=== PATIENT | female | born 1955 ===

== ENCOUNTER 2024-09-14 12:15 | Inpatient (IN) | payer OTHER ==
[~2024-09-14] VITALS: Ht 61 cm; Wt 68.0 kg
[2024-09-14] MEDS ORDERED: CYMBALTA60 MG PO (13:11)
[2024-09-14] MEDS ORDERED: COZAAR100 MG PO (13:11)
[2024-09-14] MEDS ORDERED: ULTRACET (13:12)
[2024-09-19] MEDS ORDERED: PROMETHAZINE HCL 50 MG/ML AMPUL IM PRN (11:00)
[2024-09-19] MEDS ORDERED: 0.9 % SODIUM CHLORIDE 1,000 ML IV SCH (11:00)
[2024-09-19] MEDS ORDERED: ENALAPRILAT DIHYDRATE 1.25 MG/ML VIAL IV PRN (11:00)
[2024-09-19] MEDS ORDERED: AMOX-CLAV 875-1 EACH PO (11:04)
[2024-09-19] MEDS ORDERED: COLACE100 MG PO (11:04)
[2024-09-19] MEDS ORDERED: PERCOCET 5-3251 EACH PO (11:04)
[2024-09-19] MEDS ORDERED: MEDROLPACK PO (11:04)
[2024-09-19] MEDS ORDERED: GABAPENTIN100 M2 PO (11:05)
[2024-09-19] MEDS ORDERED: NEURONTIN800 MG PO (11:05)
[2024-09-19] MEDS ORDERED: ACETAMINOPHEN 500 MG GEL..CAP PO SCH ×2 (13:00→20:00)
[2024-09-19] MEDS ORDERED: DOCUSATE SODIUM 100MG CAP PO SCH (13:00)
[2024-09-19] MEDS ORDERED: MORPHINE SULFATE 4 MG/ML CARTRIDGE IV SCH (13:00)
[2024-09-19] MEDS ORDERED: VANCOMYCIN HCL 1,000 MG VIAL IR ONE (15:15)
[2024-09-19] MEDS ORDERED: IOVERSOL 320 MG/ML - 50 ML VIAL IV ONE (15:15)
[2024-09-19] MEDS ORDERED: METHYLPREDNISOLONE SOD SUCC 125 MG VIAL IV ONE ×2 (15:15)
[2024-09-19] MEDS ORDERED: VANCOMYCIN HCL 1,000 MG VIAL IV ONE (15:15)
[2024-09-19] MEDS ORDERED: CEFAZOLIN SODIUM 1,000 MG VIAL IV ONE (15:15)
[2024-09-19] MEDS ORDERED: CEFAZOLIN SODIUM 1,000 MG in 0.9 % SODIUM CHLORIDE 50 ML IV SCH (17:00)
[2024-09-19] MEDS ORDERED: METHYLPREDNISOLONE SOD SUCC 125 MG VIAL IV SCH (17:00)
[2024-09-19] MEDS ORDERED: FAMOtidine 20 MG TABLET PO SCH (17:00)
[2024-09-19] MEDS ORDERED: VANCOMYCIN HCL 1,000 MG VIAL IV SCH (17:00)
[2024-09-19] MEDS ORDERED: MORPHINE SULFATE 4 MG/ML VIAL IV ONE ×3 (17:45→20:20)
[2024-09-19] MEDS ORDERED: GABAPENTIN 800 MG TABLET PO SCH (21:00)
[2024-09-19 22:27] VITALS: BP 149/77; O2SAT 100
[2024-09-19 23:30] VITALS: BP 132/77; O2SAT 99
[2024-09-20] MEDS ORDERED: SODIUM CHLORIDE 0.45 % 1,000 ML IV SCH
[2024-09-20 04:00] VITALS: BP 148/87; O2SAT 97
[2024-09-20 05:49] LABS: CALCIUM 9.1 mg/dL (8.5-10.1); CREATININE SERUM 0.68 mg/dL (0.55-1.02); GFR 85.79; POTASSIUM 5.66 mEq/L (3.5-5.1)
[2024-09-20] MEDS ORDERED: OxyCODONE HCL 5 MG TABLET (ROXICODONE) PO PRN (06:01)
[2024-09-20 06:32] LABS: HEMATOCRIT 37.2 % (36.0-45.00); HEMOGLOBIN 12.4 g/dL (12.0-15.00); MEAN CORPUSCULAR HEMOGLOBIN 31.6 pg (27.00-32.0); MEAN CORPUSCULAR HGB CONC 33.2 g/dl (32.0-36.0); PLATELET COUNT 169 K/uL (150-450); RED BLOOD COUNT 3.92 M/uL (4.00-6.00); RED CELL DISTRIBUTION WIDTH 12.7 % (11.5-14.5)
[2024-09-20] MEDS ORDERED: INSULIN LISPRO 1,000 UNIT/10 ML UNITS SUBCUTANEO PRN (07:15)
[2024-09-20] MEDS ORDERED: DEXTROSE 50 % IN WATER 0.5 G/ML DISP.SYRIN IV PRN (07:15)
[2024-09-20] MEDS ORDERED: TAMSULOSIN HCL 0.4 MG CAP PO SCH (09:00)
[2024-09-20] MEDS ORDERED: LOSARTAN POTASSIUM 100 MG TABLET PO SCH (09:00)
[2024-09-20] MEDS ORDERED: Duloxetine HCl 60 MG CAPSULE.DR PO SCH (09:00)
[2024-09-20 13:20] VITALS: BP 167/76; O2SAT 99
[2024-09-20 13:27] VITALS: BP 128/65; O2SAT 98
== END 2024-09-20 14:17 | disposition home or self-care (01) | DRG 402 ==
LOC: EDSTATUS 12:15 → ADM 12:15 → O/R 09-19 06:45 → SURH 09-19 10:30 → O/R 09-19 14:32 → SURG 09-19 14:32 → PED 09-19 18:24
PROVIDERS: ADMIT Orthopaedic Surgery Orthopaedic Surgery of the Spine; ATTEND Orthopaedic Surgery Orthopaedic Surgery of the Spine
PROC: 0SG3071 Fusion of Lumbosacral Joint with Autologous Tissue Substitute, Posterior Approach, Posterior Column, Open Approach (ICD-10-PCS; 2024-09-19)
PROC: 0ST40ZZ Resection of Lumbosacral Disc, Open Approach (ICD-10-PCS; 2024-09-19)
PROC: 4A11X4G Monitoring of Peripheral Nervous Electrical Activity, Intraoperative, External Approach (ICD-10-PCS; 2024-09-19)
PROC: 0QB30ZZ Excision of Left Pelvic Bone, Open Approach (ICD-10-PCS; 2024-09-19)
PROC: 07DR0ZZ Extraction of Iliac Bone Marrow, Open Approach (ICD-10-PCS; 2024-09-19)
PROC: XRGD0R7 Fusion of Lumbosacral Joint using Custom-Made Anatomically Designed Interbody Fusion Device, Open Approach, New Technology Group 7 (ICD-10-PCS; principal; 2024-09-19 10:30)
DX: M48.07 Spinal stenosis, lumbosacral region (principal); M43.07 Spondylolysis, lumbosacral region; M54.17 Radiculopathy, lumbosacral region; Z20.822 Contact with and (suspected) exposure to COVID-19; I10 Essential (primary) hypertension; Z98.1 Arthrodesis status